=== PATIENT | female | born 1955 | race Caucasian/White ===

== ENCOUNTER 2019-09-27 16:30 | Outpatient (CLI) | payer BC ==
--- NOTE | 2019-09-27 17:05 | RAD ---
TWO VIEWS LEFT HIP: 09/27/19 HISTORY: Acute pain. Fall. FINDINGS: Mild loss of the hip joint space height. Contour of the femoral head is maintained. No fracture. Visu alized bony pelvis is unremarkable. IMPRESSION: No fracture. POS: CET
--- NOTE | 2019-09-27 17:06 | RAD ---
THREE VIEWS OF THE LUMBAR SPINE: 09/27/19 HISTORY: Fall. Pain. FINDINGS: Five lumbar type vertebrae. Lumbar spine vertebral body heights are maintained. There is no fracture. No significant loss of disc space height. Mild straightening of the lumbar lordosis may be due to pa tient position or muscle spasm. No spondylolisthesis or spondylolysis. IMPRESSION: 1. No fracture. 2. Mild straightening of the lumbar lordosis as above. MRI if there is concern for possible cent ral canal stenosis or foraminal narrowing. POS: CET
== END 2019-09-27 16:31 | disposition home or self-care (01) ==
LOC: NAV RAD 16:30
PROVIDERS: ATTEND Family Medicine
DX: M54.5 Low back pain (principal); M40.56 Lordosis, unspecified, lumbar region
CPT/HCPCS: 72100